=== PATIENT | female | born 1985 | race Caucasian/White ===

== ENCOUNTER → 2016-03-19 | Outpatient (CLI) | payer BC ==
[2016-03-19 15:50] LABS: BASOPHILS % (AUTO) 0 % (0-2); EOSINOPHILS % (AUTO) 0 % (0-4); LYMPHOCYTES # (AUTO) 1.9 X10^3; MEAN CORPUSCULAR HEMOGLOBIN 28.9 PG (26.0-34.0); MEAN CORPUSCULAR VOLUME 88 FL (80-100); MEAN PLATELET VOLUME 9.8 FL (6.0-9.5); MONOCYTES # (AUTO) 0.5 X10^3; MONOCYTES % (AUTO) 5 % (3-11); NEUTROPHILS # (AUTO) 7.6 X10^3; NEUTROPHILS % (AUTO) 75 % (51-67); PLATELET COUNT 398 10^3uL (150-450); WHITE BLOOD COUNT 10.07 10^3uL (4.0-11.0)
[2016-03-19 16:24] LABS: ALBUMIN 4.4 g/dL (3.4-5.0); ALKALINE PHOSPHATASE 115 U/L (38-126); BUN/CREATININE RATIO 17 (10-20); TOTAL PROTEIN 8.1 g/dL (6.4-8.5)
== END ==
LOC: LAB 15:22
PROVIDERS: ATTEND Family Medicine
DX: R07.89 Other chest pain (principal)
CPT/HCPCS: 36415; 80053; 82550; 84484; 85025